=== PATIENT | male | born 1985 | race Caucasian/White ===

== ENCOUNTER 2021-03-25 11:26 | Emergency (ER) | payer OTHER, SELFPAY ==
--- NOTE | 2021-03-25 11:28 | ED_ITS ---
HPI - Abdominal Pain General Chief Complaint: Abdominal Pain Stated Complaint: states pancreatitis Time Seen by Provider: 03/25/21 11:28 Source: patient Mode of arrival: Ambulatory Limitations: no limitations History of Present Illness HPI narrative: 35M daily smoker with history of pancreatitis presents with a chief complaint of upwards of 1 week of severe epigastric pain with radiation to his back. He states it feels quite similar to prior episodes of pancreatitis and seems to be worsened by food and drink. He has nausea but denies any vomiting. He has no jaundice, fever or chills. He denies any use of alcohol and does not have a history of gallbladder disease. MD complaint: abdominal pain Onset (ago): day(s) Pain Consistency: constant Location: epigastric Severity: moderate Quality: cramping and aching Radiation: epigastric Relieving factors: nothing Related Data Home Medications Medication Instructions Recorded Confirmed lisinopril 20 mg PO QDAY #0 11/18/16 cholecalciferol (vitamin D3) 2,000 iu PO QDAY #0 02/06/18 [Vitamin D3] Previous Rx's Medication Instructions Recorded hydrocodone-acetaminophen 0 tab PO Q6HP PRN #15 tab 02/06/18 ondansetron [Zofran ODT] 4 mg SUBLINGUAL Q6HP PRN #20 odt 02/06/18 hydrocodone-acetaminophen 1 tab PO Q4-6H PRN #10 tab 03/25/21 ondansetron 4 mg PO TID-QID PRN #10 tab 03/25/21 Allergies Allergy/AdvReac Type Severity Reaction Status Date / Time No Known Allergies Allergy Uncoded 02/18/18 12:10 Review of Systems Constitutional Constitutional: Denies chills, Denies fatigue, Denies fever(s), Denies frequent falls, Denies lethargy and Denies weakness Eyes Eyes: Denies change in vision, Denies eye discharge, Denies irritation and Denies loss of vision ENT Ears, Nose, Mouth, and Throat: Denies change in voice, Denies dizziness, Denies neck pain, Denies sore throat and Denies throat swelling Cardiovascular Cardiovascular: Denies chest pain, Denies irregular heart rhythm, Denies lightheadedness, Denies palpitations, Denies dyspnea, Denies dyspnea on exertion and Denies orthopnea Respiratory Respiratory: Denies cough, Denies dyspnea, Denies dyspnea on exertion and Denies wheezing Gastrointestinal Gastrointestinal: Reports abdominal pain, Denies change in bowel habits, Denies diarrhea, Reports nausea and Denies vomiting Musculoskeletal Musculoskeletal: Denies neck pain and Denies numbness Integumentary/Breasts Skin/Breast: Denies pruritus, Denies erythema, Denies rash and Denies wounds Neurologic Neurologic: Denies behavioral changes, Denies confusion, Denies dizziness, Denies frequent falls, Denies loss of vision, Denies numbness and Denies weakness Psychiatric Psychiatric: Denies anxiety, Denies behavioral changes, Denies confusion, Denies depression, Denies homicidal ideation and Denies suicidal ideation Endocrine Endocrine: Denies fatigue, Denies flushing and Denies palpitations Hematologic/Lymphatic Hematologic/Lymphatic: Denies easy bruising Allergic/Immunologic Allergic/Immunologic: Denies urticaria, Denies throat swelling and Denies wheezing Patient History Family History Father Age: 58 Heart disease Grandfather Age: 74 Throat cancer Grandmother Heart disease Social History Smoking Status: Former smoker Smoking Status: Former smoker alcohol intake frequency: 0-2 drinks per day Substance Use Type: does not use Exam Narrative Exam Narrative: GENERAL: [35] year old patient appears stated age. Well- nourished, well-developed patient, in mild distress. HEAD: Atraumatic. Normocephalic. EYES: Pupils equal round and reactive. Extraocular motions intact. No scleral icterus. No injection or drainage. ENT: Nose without bleeding, purulent drainage. Throat without erythema, tonsillar hypertrophy or exudate. Airway patent. NECK: Trachea midline. Non tender CARDIOVASCULAR: Regular rate and rhythm without murmurs, gallops, or rubs. RESPIRATORY: Clear to auscultation. Breath sounds equal bilaterally. No wheezes, rales, or rhonchi. GASTROINTESTINAL: Abdomen soft, mildly tender in the epigastric, nondistended. EXTREMITIES: No edema or joint tenderness. BACK: Nontender without deformity or crepitance. No flank tenderness. NEURO: AOx3. SKIN: No rash or erythema of visible areas Initial Vital Signs Initial Vital Signs: Vital Signs Temperature 97.4 F L 03/25/21 11:30 Pulse Rate 90 03/25/21 11:30 Respiratory Rate 18 03/25/21 11:30 Blood Pressure 147/104 H 03/25/21 11:30 Pulse Oximetry 98 03/25/21 11:30 Course Orders Ordered: ED Orders 03/25/21 11:39 US abdomen limited Stat 03/25/21 11:40 Complete Blood Count AUTO DIFF Stat Comprehensive Metabolic Panel Stat Lactate Dehydrogenase Stat Lipase Stat Discontinued Medications Sodium Chloride (Normal Saline 0.9%) 1,000 mls @ 1,000 mls/hr IV BOLUS ONE Stop: 03/25/21 12:28 Last Infusion: 03/25/21 13:45 Dose: 0 mls/hr Documented by: Admin: 03/25/21 11:40 Dose: 1,000 mls/hr Documented by: SHANIQUE Vital Signs Vital signs: Vital Signs - 8 hr 03/25/21 11:30 03/25/21 14:05 Temperature 97.4 F L Pulse Rate 90 77 Respiratory Rate 18 16 Blood Pressure 147/104 H 150/103 H Pulse Oximetry 98 98 MDM - Abdominal Pain Lab Data Result diagrams: 03/25/21 11:40 03/25/21 11:40 Labs: Lab Results 03/25/21 03/25/21 03/25/21 Range/Units 11:40 11:40 11:40 WBC 7.7 (4.5-11.0) X10^3/uL RBC 5.46 (4.5-5.9) X10^6/uL Hgb 16.1 (13.5-17.5) g/dL Hct 47.2 (41-53) % MCV 86.4 (80-100) fL MCH 29.4 (26-34) PG MCHC 34.1 (30-36) % RDW 13.2 (11.6-14.8) % Plt Count 229 (150-400) X10^3/uL Neut % (Auto) 64.3 (50-75) % Lymph % (Auto) 24.5 L (25-40) % Archer % (Auto) 9.5 (3-14) % Eos % (Auto) 1.4 L (2-4) % Baso % (Auto) 0.3 (0-2) % Neut # (Auto) 5000 (9467-8961) /uL Lymph # (Auto) 1900 (5302-2994) /uL Archer # (Auto) 700 (0-900) /uL Eos # (Auto) 100 (0-450) /uL Baso # (Auto) 0 (0-100) /uL Sodium 139 (137-145) mmol/L Potassium 4.0 (3.4-5.1) mmol/L Chloride 102 (98-107) mmol/L Carbon Dioxide 29 (22-32) mmol/L BUN 16 (9-20) mg/dL Creatinine 0.96 (0.66-1.25) mg/dL Estimated GFR > 60.0 (>60) mL/min BUN/Creatinine Ratio 16.7 (6-22) Glucose 115 H (70-100) mg/dL Calcium 9.8 (8.4-10.2) mg/dL Total Bilirubin 0.4 (0.2-1.3) mg/dL AST 32 (17-59) IU/L ALT 35 (<50) IU/L Alkaline Phosphatase 55 (38-126) U/L Lactate Dehydrogenase 458 (313-618) U/L Total Protein 8.0 (6.3-8.2) g/dL Albumin 4.6 (3.5-5.0) g/dL Globulin 3.4 (1.7-4.1) g/dL Albumin/Globulin Ratio 1.4 (1.0-2.8) Lipase 2033 H (23-300) U/L Imaging Data US - OB: Radiologist's Impression: Pablo Mejia 35 M 1985 [place], [place] [address]Ultrasound ReportSigned Patient: Pablo Mejia LMR#: [id number]: 1985Acct:[id number]/Sex: 35 / MDate of Service: 03/25/21Loc: EDAccession Number: [id number] Procedure: US abdomen limited Ordering Provider: Braden Hudson D.O. PROCEDURE: US ABDOMEN LIMITED INDICATIONS: SEVERE EPIGASTRIC PAIN. HISTORY OF PANCREATITIS TECHNIQUE: Real-time scanning was performed of the abdominal and retroperitoneal organs, with image documentation. COMPARISON: None. FINDINGS: Liver: Liver is mildly enlarged measuring 17.8 centimeters. There is increased hepatic echotexture. The main portal vein is patent with hepatopetal flow. Gallbladder: Demonstrates normal wall thickness at 2.7 millimeters. No sonographic Simeon sign or pericholecystic fluid. There are multiple echogenic a vascular regions along the gallbladder wall which do not shadow or demonstrate movement. The largest measures up to 4 millimeters in diameter. Biliary ducts: Intrahepatic bile ducts are non-dilated. Extrahepatic bile duct caliber measures 3.8 mm. Normal is 6-7 mm or less in diameter, or 10 mm or less post-cholecystectomy. Pancreas: Visualized portions of the proximal pancreas are sonographically normal. IMPRESSION: Hepatomegaly with findings suggestive of hepatic steatosis. There are likely multiple gallbladder polyps measuring up to 4 millimeters. No follow-up is necessary. No definite cholelithiasis. No evidence of cholecystitis. Dictated by: Ayaz Lorenzo D.O. on 03/25/2021 at 12:18 Approved by: Ayaz Lorenzo D.O. on 03/25/2021 at 12:22 MDM Narrative Medical decision making narrative: Patient with history of pancreatitis presents with similar symptoms. His vitals are stable, no signs of sepsis, rinse in score is 0, pain is well controlled, patient is tolerating liquids. He has no fever, jaundice or mental status change. Patient has been given extensive return precautions and has had questions answered to his apparent satisfaction Discharge Plan Departure Patient Disposition: Home Clinical Impression: Pancreatitis Qualifiers: Chronicity: acute Pancreatitis type: other Acute pancreatitis complication: unspecified Qualified Code(s): K85.80 - Other acute pancreatitis without necrosis or infection Instructions: DI for Pancreatitis Activity Restrictions/Additional Instructions: *You have been diagnosed with [acute pancreatitis] *What to do: *Please continue to take your regular medications as directed. [ ] New medication prescriptions sent to your pharmacy: [ ] [ x] New medication written as a paper prescription [ ] No new medications given *Please follow up with your primary care provider in 2-3 days, call for an appointment. Let them know you were seen in the Emergency Department and that we ask that you be seen in follow up. We will electronically transmit a record of today's note if your PCP is in our system *If you do not have a primary care provider please contact the [facility] Resource line at [phone]. They will ask some questions about your medical history and help get you set up with a doctor in the community. *Return to Emergency Department if you should have any new, worsening or concerning symptoms, such as [fever greater than 101 F, shaking chills, worsening pain, persistent vomiting or other bothersome symptoms] Please consider a clear liquid diet for the next 24-48 hours and then advance to bland foods such as bananas, rice, apples and toast. Please avoid fatty foods, spicy foods and alcohol. Prescriptions: New hydrocodone-acetaminophen 5-325 mg tablet 1 tab PO Q4-6H PRN (Reason: pain) Qty: 10 RF: 0 ondansetron 4 mg tablet,disintegrating 4 mg PO TID-QID PRN (Reason: nausea and vomiting) Qty: 10 RF: 0 No Action lisinopril 20 MG tablet 20 mg PO QDAY Qty: 0 RF: 0 cholecalciferol (vitamin D3) [Vitamin D3] 2,000 UNIT capsule 2,000 iu PO QDAY Qty: 0 RF: 0 hydrocodone-acetaminophen 5 MG/325 MG tablet 0 tab PO Q6HP PRNQty: 15 RF: 0 ondansetron [Zofran ODT] 4 MG tablet,disintegrating 4 mg Sublingual Q6HP PRNQty: 20 RF: 0
[2021-03-25 11:30] VITALS: BP 147/104; PULSE 90; RESP 18; TEMP 36.3; O2SAT 98; BMI 34.9
--- NOTE | 2021-03-25 11:39 | DI.US.S_ITS ---
PROCEDURE: US ABDOMEN LIMITED INDICATIONS: SEVERE EPIGASTRIC PAIN. HISTORY OF PANCREATITIS TECHNIQUE: Real-time scanning was performed of the abdominal and retroperitoneal organs, with image documentation. COMPARISON: None. FINDINGS: Liver: Liver is mildly enlarged measuring 17.8 centimeters. There is increased hepatic echotexture. The main portal vein is patent with hepatopetal flow. Gallbladder: Demonstrates normal wall thickness at 2.7 millimeters. No sonographic Simeon sign or pericholecystic fluid. There are multiple echogenic a vascular regions along the gallbladder wall which do not shadow or demonstrate movement. The largest measures up to 4 millimeters in diameter. Biliary ducts: Intrahepatic bile ducts are non-dilated. Extrahepatic bile duct caliber measures 3.8 mm. Normal is 6-7 mm or less in diameter, or 10 mm or less post-cholecystectomy. Pancreas: Visualized portions of the proximal pancreas are sonographically normal. IMPRESSION: Hepatomegaly with findings suggestive of hepatic steatosis. There are likely multiple gallbladder polyps measuring up to 4 millimeters. No follow-up is necessary. No definite cholelithiasis. No evidence of cholecystitis. Dictated by: Ayaz Lorenzo D.O. on 03/25/2021 at 12:18 Approved by: Ayaz Lorenzo D.O. on 03/25/2021 at 12:22
[2021-03-25] MEDS: SODIUM CHLORIDE 0.9% 1,000 ML 1000 ML IV (11:40)
[2021-03-25 11:55] LABS: Add Manual Diff / Slide Review NO; Basophils Absolute Auto 0 /uL (0-100); Basophils Percent Auto 0.3 % (0-2); Eosinophils Absolute Auto 100 /uL (0-450); Eosinophils Percent Auto 1.4 % (2-4); Hematocrit 47.2 % (41-53); Hemoglobin 16.1 g/dL (13.5-17.5); Lymphocytes Absolute Auto 1900 /uL (1100-4500); Lymphocytes Percent Auto 24.5 % (25-40); Mean Corpuscular HGB Conc 34.1 % (30-36); Mean Corpuscular Hemoglobin 29.4 PG (26-34); Mean Corpuscular Volume 86.4 fL (80-100); Monocytes Absolute Auto 700 /uL (0-900); Monocytes Percent Auto 9.5 % (3-14); Neutrophils Absolute Auto 5000 /uL (1500-7000); Neutrophils Percent Auto 64.3 % (50-75); Platelet Count 229 X10^3/uL (150-400); Red Blood Cell Count 5.46 X10^6/uL (4.5-5.9); Red Cell Distribution Width 13.2 % (11.6-14.8); White Blood Cell Count 7.7 X10^3/uL (4.5-11.0)
[2021-03-25 12:02] LABS: Alanine Aminotransferase 35 IU/L (<50); Albumin 4.6 g/dL (3.5-5.0); Albumin Globulin Ratio 1.4 (1.0-2.8); Alkaline Phosphatase 55 U/L (38-126); Aspartate Aminotransferase 32 IU/L (17-59); BUN Creatinine Ratio 16.7 (6-22); Bilirubin Total 0.4 mg/dL (0.2-1.3); Blood Urea Nitrogen 16 mg/dL (9-20); Calcium 9.8 mg/dL (8.4-10.2); Carbon Dioxide 29 mmol/L (22-32); Chloride 102 mmol/L (98-107); Estimated Glomerular Filt Rate > 60.0 mL/min (>60); Globulin 3.4 g/dL (1.7-4.1); Glucose 115 mg/dL (70-100); HEMOLYSIS 17 (0-50); Lactate Dehydrogenase 458 U/L (313-618); Sodium 139 mmol/L (137-145)
[2021-03-25 12:10] LABS: Lipase 2033 U/L (23-300)
[2021-03-25 14:05] VITALS: BP 150/103; PULSE 77; RESP 16; O2SAT 98
== END 2021-03-25 14:05 | disposition home or self-care (01) ==
PROVIDERS: Emergency Provider Emergency Medicine
DX: K85.80 Other acute pancreatitis without necrosis or infection (principal); R11.0 Nausea
CPT/HCPCS: 36415; 76705; 80053; 83615; 83690; 85025; 96360; 96361; 99284